=== PATIENT | male | born 1990 | race African-American/Black ===

== ENCOUNTER 2021-01-07 12:01 | Emergency (ER) | payer OTHER ==
[~2021-01-07] VITALS: Ht 180.3 cm; Wt 81.8 kg
[2021-01-07 12:05] VITALS: BP 125/74
[2021-01-07] MEDS ORDERED: ACETAMINOPHEN 500 MG TABLET PO ONE (13:30)
== END 2021-01-07 13:21 | disposition home or self-care (01) ==
LOC: EMS 12:11
DX: B34.1 Enterovirus infection, unspecified (principal)
CPT/HCPCS: 99283